=== PATIENT | female | born 1990 | race African-American/Black ===

== ENCOUNTER 2019-07-05 21:29 | Inpatient (IN) | payer BC ==
[2019-07-06 01:25] LABS: ABSOLUTE BASOPHILS # (AUTO) 0.1 10^3/uL (0.0-0.2); ABSOLUTE LYMPHOCYTES (AUTO) 1.6 10^3/uL (0.5-4.7); ABSOLUTE MONOCYTES (AUTO) 0.7 10^3/uL (0.1-1.4); ABSOLUTE NEUT (AUTO) 8.1 10^3/uL (1.7-8.2); BASOPHILS % (AUTO) 0.6 % (0-2); HEMATOCRIT 49.2 % (36.0-47.0); HEMOGLOBIN 15.8 g/dL (12.0-15.5); LYMPHOCYTES % (AUTO) 14.8 % (13-45); MEAN CORPUSCULAR HEMOGLOBIN 26.4 pg (27.0-33.4); MEAN CORPUSCULAR HGB CONC 32.1 g/dL (32.0-36.0); MEAN CORPUSCULAR VOLUME 82 fl (80-97); MONOCYTES % (AUTO) 7.1 % (3-13); PLATELET COUNT 303 10^3/uL (150-450); RED BLOOD COUNT 5.97 10^6/uL (3.72-5.28); RED CELL DISTRIBUTION WIDTH 13.2 % (11.5-14.0); SEGMENTED NEUTROPHILS % (AUTO) 77.5 % (42-78); TOTAL CELLS COUNTED % (AUTO) 100 %; WHITE BLOOD COUNT 10.5 10^3/uL (4.0-10.5)
[2019-07-06 01:45] LABS: ALBUMIN 5.7 g/dL (3.5-5.0); ALKALINE PHOSPHATASE 127 U/L (38-126); ASPARTATE AMINO TRANSFERASE 18 U/L (14-36); BILIRUBIN,DIRECT 0.4 mg/dL (0.0-0.4); BILIRUBIN,TOTAL 0.9 mg/dL (0.2-1.3); BLOOD UREA NITROGEN 22 mg/dL (7-20); CALCIUM 11.2 mg/dL (8.4-10.2); GLUCOSE 384 mg/dL (75-110); POTASSIUM 5.1 mmol/L (3.6-5.0)
[2019-07-06 01:57] LABS: CHLORIDE 93 mmol/L (98-107)
[2019-07-06 02:00] LABS: ANION GAP 33 (5-19); CARBON DIOXIDE 7 mmol/L (22-30)
--- NOTE | 2019-07-06 02:09 | ER Document Report ---
ED General - General Chief Complaint: High Blood Sugar Stated Complaint: SUGAR PROBLEMS Time Seen by Provider: 07/06/19 02:00 Notes: Patient is a 28-year-old female that comes to the emergency department for chief complaint of dizziness, nausea, weakness, frequent urination. She states that she was seen by urgent care earlier today, told that she has diabetes now, prescribed to oral medications including metformin, she states she took her i nitial doses but she felt so terrible that she came in for evaluation at the emergency department. She states she has lost 9 pounds this week. She does deny fever, vomiting, or any other complaints. She denies any diagnosed medical history of daily medications. Her significant other is at bedside. TRAVEL OUTSIDE OF THE [place] IN LAST 30 DAYS: No - Related Data Allergies/Adverse Reactions: No Known Allergies Allergy (Unverified 05/13/16 10:05) Home Medications: farxiga 10 mg qday. metformin ER 500 mg bid Past Medical History - General Information source: Patient, Relative - Social History Smoking Status: Never Smoker Frequency of alcohol use: None Drug Abuse: None Lives with: Family Family History: Reviewed & Not Pertinent Patient has suicidal ideation: No Patient has homicidal ideation: No Pulmonary Medical History: Reports: Hx Asthma Past Surgical History: Reports: Hx Tonsillectomy - Immunizations Immunizations up to date: Yes Hx Diphtheria, Pertussis, Tetanus Vaccination: Yes Review of Systems - Review of Systems Constitutional: See HPI EENT: No symptoms reported Cardiovascular: No symptoms reported Respiratory: No symptoms reported Gastrointestinal: See HPI Genitourinary: See HPI Female Genitourinary: No symptoms reported Musculoskeletal: No symptoms reported Skin: No symptoms reported Hematologic/Lymphatic: No symptoms reported Neurological/Psychological: No symptoms reported Physical Exam - Vital signs Vitals: Temp Pulse Resp BP Pulse Ox 97.7 F 119 H 22 H 124/69 99 07/05/19 21:40 07/05/19 21:40 07/05/19 21:40 07/05/19 21:40 07/05/19 21:40 - Notes Notes: GENERAL: Alert but ill-appearing, gaunt, pale HEAD: Normocephalic, atraumatic. EYES: Pupils equal, round, and reactive to light. Extraocular movements intact. ENT: Oral mucosa extremely dry, tongue midline. Oropharynx unremarkable. Airway patent. NECK: Full range of motion. Supple. Trachea midline. LUNGS: Clear to auscultation bilaterally, no wheezes, rales, or rhonchi. Tachypnea noted HEART: Tachycardia, normal rhythm, no murmur ABDOMEN: Soft, non-tender. Non-distended. EXTREMITIES: Moves all 4 extremities spontaneously. No edema, normal radial and dorsalis pedis pulses bilaterally. No cyanosis. BACK: no cervical, thoracic, lumbar midline tenderness. No saddle anesthesia, normal distal neurovascular exam. Moves all extremities in full range of motion. NEUROLOGICAL: Alert and oriented x3. Normal speech. Cranial nerves II through XII grossly intact. PSYCH: Cooperative and appropriate SKIN: Pale Course - Re-evaluation Re-evalutation: Patient is tachycardic, pale, tachypneic, ill-appearing. Her presentation is v rommel concerning for DKA in a patient with new onset diabetes. Patient states that at urgent care earlier today she was prescribed and has taken initial doses of Farxiga 10 mg and Metformin [address] 2 peripheral IVs, starting on lactated ringer boluses, patient will likely require insulin drip and admission. She will be closely reevaluated. Placed on the monitor. On reevaluation tachycardia has already resolved, patient is already improved in appearance, respirations have slowed, her skin color is improved. CBC shows concentrated hemoglobin likely at greater than 15, no leukocytosis. Chemistry shows potassium of 5.1, blood glucose 384, anion gap of 33, bicarb of 7. Acute renal insufficiency noted with elevated BUN and creatinine of 1.28. Sodium inappropriately low in the setting of hyperglycemia. EKG does not show peaked T waves or concerning QTC. test negative. Urinalysis nonspecific with ketones and dehydration. Venous blood gas shows pH of 7.11, bicarbonate of 8. Patient has been started on an insulin infusion. On reevaluation she is much improved. I discussed with her her work-up, treatments, and admission to the hospital. Patient and her state appreciation and agreement. Discussed with Dr. Saini. He recommends admission to the hospitalist. 07/06/[address] Moss, hospitalist, he states that patient is too ill and he recommends we admit her to the ICU based on her DKA with severe acidosis. I spoke with Dr. Grover, shoe cementer, she accepts patient to the ICU. - Vital Signs Vital signs: Temp Pulse Resp BP Pulse Ox 97.7 F 119 H 25 H 116/72 100 07/05/19 21:40 07/05/19 21:40 07/06/19 04:29 07/06/19 04:29 07/06/19 04:29 - Laboratory Result Diagrams: 07/06/19 01:14 07/06/19 01:14 Laboratory results interpreted by me: 07/05/19 07/06/19 07/06/19 23:15 01:14 01:14 RBC 5.97 H Hgb 15.8 H Hct 49.2 H MCH 26.4 L VBG pH VBG pCO2 VBG HCO3 Sodium 132.8 L Potassium 5.1 H Chloride 93 L Carbon Dioxide 7 L* Anion Gap 33 H BUN 22 H Creatinine 1.28 H Est GFR (MDRD) Non-Af 50 L Glucose 384 H POC Glucose 362 H Calcium 11.2 H Alkaline Phosphatase 127 H Total Protein 10.0 H Albumin 5.7 H Urine Protein Urine Glucose (UA) Urine Ketones Urine Blood 07/06/19 07/06/19 07/06/19 01:45 02:16 03:35 RBC Hgb Hct MCH VBG pH 7.11 L* VBG pCO2 28.2 L VBG HCO3 8.8 L Sodium Potassium Chloride Carbon Dioxide Anion Gap BUN Creatinine Est GFR (MDRD) Non-Af Glucose POC Glucose 263 H Calcium Alkaline Phosphatase Total Protein Albumin Urine Protein 100 H Urine Glucose (UA) >=500 H Urine Ketones 80 H Urine Blood SMALL H Critical Care Note - Critical Care Note Total time excluding time spent on procedures (mins): 35 - Diabetic ketoacidosis, acute renal insufficiency Comments: Please allow 35 minutes of critical care time for evaluation and management of patient with new onset diabetic ketoacidosis with dehydration, severe acidosis, acute renal failure. Interventions including IV fluid resuscitation and insulin drip. Multiple re-evaluations performed. Consultation with hospitalist and shoe cementer, admission to the ICU. Discharge - Discharge Clinical Impression: Acute renal insufficiency, Tachycardia, Diabetes mellitus, new onset DKA (diabetic ketoacidosis) Qualifiers: Diabetes mellitus type: type 1 Diabetes mellitus complication detail: without coma Qualified Code(s): E10.10 - Type 1 diabetes mellitus with ketoacidosis without coma Condition: Fair Disposition: ADMITTED INPATIENT Admitting Provider: Reilly (Marketing Program Coordinator) Unit Admitted: ICU
[2019-07-06 02:10] LABS: APPEARANCE,URINE CLEAR; BILIRUBIN,URINE NEGATIVE (NEGATIVE); COLOR,URINE STRAW; GLUCOSE, URINE >=500 mg/dL (NEGATIVE); KETONES,URINE 80 mg/dL (NEGATIVE); LEUKOCYTE ESTERASE,URINE NEGATIVE (NEGATIVE); NITRITE,URINE NEGATIVE (NEGATIVE); PROTEIN,URINE 100 mg/dL (NEGATIVE); UROBILINOGEN,URINE NEGATIVE mg/dL (<2.0)
[2019-07-06] MEDS ORDERED: NORMAL SALINE 100 ML with INSULIN REGULAR, HUMAN 100 UNIT IV PRN ×2 (02:28)
[2019-07-06] MEDS: RINGERS SOLUTION,LACTATED 1,000 ML IV PRN ×2 (02:30→03:32)
[2019-07-06 02:34] LABS: VENOUS BLOOD BASE EXCESS -19.2 mmol/L; VENOUS BLOOD HCO3 8.8 mmol/L (20-32); VENOUS BLOOD PCO2 28.2 mmHg (35-63)
[2019-07-06 02:37] LABS: VENOUS BLOOD PH 7.11 (7.30-7.42)
[2019-07-06] MEDS ORDERED: INSULIN REG, HUMAN 100 UNIT/ML 3 ML VIAL (PYX) ONE (02:51)
[2019-07-06] MEDS ORDERED: RINGERS SOLUTION,LACTATED 1,000 ML IV PRN (03:25)
[2019-07-06] MEDS ORDERED: DEXTROSE 5%-1/2 NORMAL SALINE 1,000 ML IV ONE (03:48)
[2019-07-06] MEDS ORDERED: ACETAMINOPHEN 325 MG TABLET ONE (05:55)
[2019-07-06] MEDS ORDERED: ACETAMINOPHEN 325 MG TABLET PO ONE (06:10)
--- NOTE | 2019-07-06 06:23 | CRITICAL CARE ADMISSION REPORT ---
HPI Date:: 07/06/19 Time:: 04:47 Reason for ICU Reason:: DKA, HAGMA HPI: Ms. Lyles is a 28yr old F without significant PMH who came to the ED today after several days of feeling dizzy, nauseated, weak, 9# weight loss in one week and frequent urination. She was seen at the urgent care yesterday and told she had diabetes and prescribed Metformin. She reportedly felt worse after taking the first dose of the medication and decided to come to the ED. Labs are significant for glucose of 384, pH of 7.11, anion gap of 33. She will be admitted to the ICU for new onset diabetes with HAGMA. - Diagnosis/Plan (1) High anion gap metabolic acidosis Is this a current diagnosis for this admission?: Yes Plan: Secondary to new onset DM - continue insulin gtt and D5 IV fluids with Q4 BMP to follow anion gap (2) DKA (diabetic ketoacidosis) Qualifiers: Diabetes mellitus type: type 1 Diabetes mellitus complication detail: w [facility] coma Qualified Code(s): E10.10 - Type 1 diabetes mellitus with ket oacidosis without coma Is this a current diagnosis for this admission?: Yes Plan: New onset DKA - continue insulin gtt, IV fluids with dextrose source, monitoring labs Q4hr until anion gap is closed, Q1hr POC with titration of insulin gtt, NPO except ice chips, requested services of special officer and nutrition (3) Diabetes mellitus, new onset Is this a current diagnosis for this admission?: Yes Plan: plan as stated above in DKA ddx (4) Nausea Is this a current diagnosis for this admission?: Yes Plan: Zofran q8 PRN nausea symptoms, monitor QTc (5) Acute renal insufficiency Is this a current diagnosis for this admission?: Yes Plan: Monitor I&O, trend renal indices, replace lytes PRN, continue IV fluids - . Plan Summary: Ms. Lyles is a very pleasant 28yr old F with newly diagnosed diabetes who arrived to the ED with DKA and HAGMA. She has no prior medical hx and is not on any medications prior to being prescribed Metformin from an urgent care she was seen at yesterday. After starting the medication she felt worse and decided to go to the ED. She will be admitted to the ICU for frequent blood glucose monitoring and lab work while on an insulin gtt. Past Medical History Past Medical History: Per HPI Pulmonary Medical History: Reports: Asthma Past Surgical History Past Surgical History: Reports: Tonsillectomy Social/Family History - Social History Smoking Status: Never Smoker - Medication/Allergies Allergies/Adverse Reactions: No Known Allergies Allergy (Unverified 05/13/16 10:05) Review of Systems Constitutional: PRESENT: anorexia, headache(s), weight gain Nose, Mouth, and Throat: PRESENT: headache(s). ABSENT: sore throat Cardiovascular: ABSENT: chest pain, palpitations Respiratory: ABSENT: cough Gastrointestinal: PRESENT: nausea. ABSENT: abdominal pain, diarrhea, vomiting Genitourinary: PRESENT: other - polyuria Neurological: ABSENT: confusion, numbness, tingling Physical Exam Vital Signs: Temp Pulse Resp BP Pulse Ox 97.7 F 119 H 23 H 124/69 100 07/05/19 21:40 07/05/19 21:40 07/06/19 04:00 07/05/19 21:40 07/06/19 04:00 Intake & Output 07/04/19 07/05/19 07/06/19 06:59 06:59 06:59 Intake Total 2003 Balance 2003 Weight 69.445 kg Weight/Height Weight 69.445 kg Height 5 ft 3 in General appearance: PRESENT: no acute distress, well-developed, well-nourished Head exam: PRESENT: atraumatic, normocephalic Eye exam: PRESENT: conjunctiva pink, EOMI, PERRLA Ear exam: PRESENT: normal external ear exam Mouth exam: PRESENT: dry mucosa Neck exam: ABSENT: tracheal deviation Respiratory exam: PRESENT: clear to auscultation ramila. ABSENT: wheezes Cardiovascular exam: PRESENT: RRR, +S1, +S2 Pulses: PRESENT: normal dorsalis pedis pul GI/Abdominal exam: PRESENT: normal bowel sounds. ABSENT: tenderness Extremities exam: ABSENT: pedal edema Neurological exam: PRESENT: alert, awake, oriented to person, oriented to place, oriented to time, oriented to situation, CN II-XII grossly intact Psychiatric exam: PRESENT: appropriate affect Skin exam: PRESENT: dry, warm Laboratory/Radiographs Laboratory Results: 07/06/19 01:14 07/06/19 01:14 07/06/19 07/06/19 07/06/19 01:14 01:14 01:45 WBC 10.5 RBC 5.97 H Hgb 15.8 H Hct 49.2 H MCV 82 MCH 26.4 L MCHC 32.1 RDW 13.2 Plt Count 303 Seg Neutrophils % 77.5 VBG pH VBG pCO2 VBG HCO3 VBG Base Excess Sodium 132.8 L Potassium 5.1 H Chloride 93 L Carbon Dioxide 7 L* Anion Gap 33 H BUN 22 H Creatinine 1.28 H Est GFR ( Amer) > 60 Glucose 384 H Calcium 11.2 H Total Bilirubin 0.9 AST 18 Alkaline Phosphatase 127 H Total Protein 10.0 H Albumin 5.7 H Urine Color STRAW Urine Appearance CLEAR Urine pH 5.0 Ur Specific [place] 1.030 Urine Protein 100 H Urine Glucose (UA) >=500 H Urine Ketones 80 H Urine Blood SMALL H Urine Nitrite NEGATIVE Ur Leukocyte Esterase NEGATIVE Urine WBC (Auto) 2 Urine RBC (Auto) 1 07/06/19 02:16 WBC RBC Hgb Hct MCV MCH MCHC RDW Plt Count Seg Neutrophils % VBG pH 7.11 L* VBG pCO2 28.2 L VBG HCO3 8.8 L VBG Base Excess -19.2 Sodium Potassium Chloride Carbon Dioxide Anion Gap BUN Creatinine Est GFR ( Amer) Glucose Calcium Total Bilirubin AST Alkaline Phosphatase Total Protein Albumin Urine Color Urine Appearance Urine pH Ur Specific [place] Urine Protein Urine Glucose (UA) Urine Ketones Urine Blood Urine Nitrite Ur Leukocyte Esterase Urine WBC (Auto) Urine RBC (Auto) Critical Time Critical Time (minutes): 30 - not including procedures -: The care of a critically ill patient is dynamic. This note represents a static moment in the admission process. Orders and treatments may be given simultaneously and urgently, and time is not telephone services sales representative of the treatment process. This patient requires Critical Care secondary to life threatening organ or limb dysfunction. Without Critical Care services, the patient is at risk for increased mortality and morbidity.
[2019-07-06] MEDS ORDERED: INFLUENZA QUAD (6MOS+) 2019-20 VAC 0.5 ML SYR IM ONE (07:00)
[2019-07-06 08:14] LABS: ABSOLUTE LYMPHOCYTES (AUTO) 2.5 10^3/uL (0.5-4.7); ABSOLUTE MONOCYTES (AUTO) 0.8 10^3/uL (0.1-1.4); ABSOLUTE NEUT (AUTO) 6.5 10^3/uL (1.7-8.2); BASOPHILS % (AUTO) 0.5 % (0-2); EOSINOPHILS % (AUTO) 0.2 % (0-6); HEMATOCRIT 41.4 % (36.0-47.0); HEMOGLOBIN 13.8 g/dL (12.0-15.5); LYMPHOCYTES % (AUTO) 25.7 % (13-45); MEAN CORPUSCULAR HEMOGLOBIN 26.5 pg (27.0-33.4); MEAN CORPUSCULAR HGB CONC 33.3 g/dL (32.0-36.0); MEAN CORPUSCULAR VOLUME 80 fl (80-97); MONOCYTES % (AUTO) 8.1 % (3-13); PLATELET COUNT 260 10^3/uL (150-450); RED CELL DISTRIBUTION WIDTH 12.6 % (11.5-14.0); SEGMENTED NEUTROPHILS % (AUTO) 65.5 % (42-78); TOTAL CELLS COUNTED % (AUTO) 100 %; WHITE BLOOD COUNT 9.9 10^3/uL (4.0-10.5)
[2019-07-06 08:33] LABS: ALBUMIN 4.2 g/dL (3.5-5.0); ALKALINE PHOSPHATASE 80 U/L (38-126); ASPARTATE AMINO TRANSFERASE 15 U/L (14-36); BILIRUBIN,DIRECT 0.3 mg/dL (0.0-0.4); BILIRUBIN,TOTAL 0.6 mg/dL (0.2-1.3); BLOOD UREA NITROGEN 16 mg/dL (7-20); CALCIUM 9.3 mg/dL (8.4-10.2); CHLORIDE 103 mmol/L (98-107); GLUCOSE 151 mg/dL (75-110); PHOSPHORUS 3.2 mg/dL (2.5-4.5); TOTAL PROTEIN 7.9 g/dL (6.3-8.2)
[2019-07-06 08:49] LABS: ANION GAP 20 (5-19)
[2019-07-06 09:06] LABS: POTASSIUM 4.1 mmol/L (3.6-5.0)
[2019-07-06 09:07] LABS: CARBON DIOXIDE 10 mmol/L (22-30)
[2019-07-06] MEDS ORDERED: ENOXAPARIN SODIUM INJ 30 MG/0.3 ML DISP.SYRIN SUBCUT SCH (10:00)
[2019-07-06 11:13] LABS: ANION GAP 14 (5-19); BLOOD UREA NITROGEN 14 mg/dL (7-20); CALCIUM 9.2 mg/dL (8.4-10.2); CARBON DIOXIDE 14 mmol/L (22-30); CHLORIDE 105 mmol/L (98-107); GLUCOSE 102 mg/dL (75-110); POTASSIUM 3.9 mmol/L (3.6-5.0)
[2019-07-06] MEDS ORDERED: DEXTROSE 5%-1/2 NORMAL SALINE 1,000 ML IV PRN (12:14)
--- NOTE | 2019-07-06 12:19 | PDOC CRITICAL CARE PROG REPORT ---
General Date:: 07/06/19 - Critical Care Attending Note Resuscitation Status: Full Code Events in the past 12 to 24 Hours:: Pt remains on insulin drip. Has no complaints. States her PCP diagnosed her with Type II DM yesterday. Reason for ICU Addmission:: DKA, HAGMA Physical Exam Vital Signs: Temp Pulse Resp BP Pulse Ox 98.6 F 102 H 18 117/75 100 07/06/19 08:00 07/06/19 10:00 07/06/19 10:00 07/06/19 10:00 07/06/19 10:00 Intake & Output 07/05/19 07/06/19 07/07/19 06:59 06:59 06:59 Intake Total 2013 Balance 2013 Weight 74 kg Weight/Height Weight 74 kg Height 5 ft 3 in General appearance: PRESENT: no acute distress, well-developed, well-nourished Head exam: PRESENT: atraumatic, normocephalic Respiratory exam: PRESENT: clear to auscultation ramila, unlabored Cardiovascular exam: PRESENT: RRR GI/Abdominal exam: PRESENT: soft, other - non tender, non distended Extremities exam: PRESENT: other - no edema Musculoskeletal exam: PRESENT: normal inspection Neurological exam: PRESENT: alert, awake Laboratory/Radiographs Laboratory Results: 07/06/19 08:00 07/06/19 10:42 07/06/19 07/06/19 07/06/19 01:14 01:14 01:45 WBC 10.5 RBC 5.97 H Hgb 15.8 H Hct 49.2 H MCV 82 MCH 26.4 L MCHC 32.1 RDW 13.2 Plt Count 303 Seg Neutrophils % 77.5 VBG pH VBG pCO2 VBG HCO3 VBG Base Excess Sodium 132.8 L Potassium 5.1 H Chloride 93 L Carbon Dioxide 7 L* Anion Gap 33 H BUN 22 H Creatinine 1.28 H Est GFR ( Amer) > 60 Glucose 384 H Calcium 11.2 H Phosphorus Magnesium Total Bilirubin 0.9 AST 18 Alkaline Phosphatase 127 H Total Protein 10.0 H Albumin 5.7 H Urine Color STRAW Urine Appearance CLEAR Urine pH 5.0 Ur Specific [place] 1.030 Urine Protein 100 H Urine Glucose (UA) >=500 H Urine Ketones 80 H Urine Blood SMALL H Urine Nitrite NEGATIVE Ur Leukocyte Esterase NEGATIVE Urine WBC (Auto) 2 Urine RBC (Auto) 1 07/06/19 07/06/19 07/06/19 02:16 08:00 08:00 WBC 9.9 RBC 5.20 Hgb 13.8 Hct 41.4 MCV 80 MCH 26.5 L MCHC 33.3 RDW 12.6 Plt Count 260 Seg Neutrophils % 65.5 VBG pH 7.11 L* VBG pCO2 28.2 L VBG HCO3 8.8 L VBG Base Excess -19.2 Sodium 133.2 L Potassium 4.1 D Chloride 103 Carbon Dioxide 10 L* Anion Gap 20 H BUN 16 Creatinine 0.82 Est GFR ( Amer) > 60 Glucose 151 H Calcium 9.3 Phosphorus 3.2 Magnesium 1.8 Total Bilirubin 0.6 AST 15 Alkaline Phosphatase 80 Total Protein 7.9 Albumin 4.2 Urine Color Urine Appearance Urine pH Ur Specific [place] Urine Protein Urine Glucose (UA) Urine Ketones Urine Blood Urine Nitrite Ur Leukocyte Esterase Urine WBC (Auto) Urine RBC (Auto) 07/06/19 10:42 WBC RBC Hgb Hct MCV MCH MCHC RDW Plt Count Seg Neutrophils % VBG pH VBG pCO2 VBG HCO3 VBG Base Excess Sodium 133.2 L Potassium 3.9 Chloride 105 Carbon Dioxide 14 L Anion Gap 14 BUN 14 Creatinine 0.76 Est GFR ( Amer) > 60 Glucose 102 Calcium 9.2 Phosphorus Magnesium Total Bilirubin AST Alkaline Phosphatase Total Protein Albumin Urine Color Urine Appearance Urine pH Ur Specific [place] Urine Protein Urine Glucose (UA) Urine Ketones Urine Blood Urine Nitrite Ur Leukocyte Esterase Urine WBC (Auto) Urine RBC (Auto) Assessment and Plan - Diagnosis (1) Diabetes mellitus, new onset Is this a current diagnosis for this admission?: Yes (2) DKA (diabetic ketoacidosis) Qualifiers: Diabetes mellitus type: type 2 Diabetes mellitus complication detail: without coma Qualified Code(s): E11.10 - Type 2 diabetes mellitus with ketoacidosis without coma Is this a current diagnosis for this admission?: Yes Plan Summary: Assessment: 28 yo woman with new onset Type II DM, DKA. Plan: 1. Respiratory: stable on room air 2. CV: heart rate and BP acceptable 3. Endocrine: new onset Type II DM. DKA. Continue insulin drip. Check frequent BMPs. Diabetic teaching. 4. Renal: CHET, resolved. 5. Nutrition: NPO 6. Prophylaxis: sq heparin Critical Time Critical Time (minutes): 0 Level of Care: ICU -: 1. The care of a critical patient is a dynamic process. This note is a entry level sales representative synopsis but static in nature. The timeframe for treatments given in order is not necessarily the actual time these treatments may have been done. 2. This patient requires critical care secondary to ongoing requirements for therapy not offered or safe outside the critical care environment. Transfer to a lower level of care will result in altered life or limb morbidity and mortality. 3. Multidisciplinary rounds completed. 4. ABCDE bundle addressed.
[2019-07-06 12:57] LABS: ANION GAP 14 (5-19); BLOOD UREA NITROGEN 14 mg/dL (7-20); CARBON DIOXIDE 16 mmol/L (22-30); CHLORIDE 103 mmol/L (98-107); GLUCOSE 88 mg/dL (75-110); POTASSIUM 3.9 mmol/L (3.6-5.0)
[2019-07-06] MEDS ORDERED: GLUCAGON,HUMAN RECOMB 1 MG INJ IM PRN ×2 (14:13→15:57)
[2019-07-06] MEDS ORDERED: DEXTROSE 40% GEL 15 GM TUBE PO PRN ×4 (14:13→15:57)
[2019-07-06] MEDS ORDERED: DEXTROSE 50%-WATER 25 GM/50 ML DISP.SYRIN IV PRN ×4 (14:13→15:57)
[2019-07-06] MEDS ORDERED: INSULIN REG, HUMAN 100 UNIT/ML 3 ML VIAL (PYX) SUBCUT SCH (16:00)
[2019-07-06] MEDS: INSULIN REG, HUMAN 100 UNIT/ML 3 ML VIAL (PYX) SUBCUT SCH ×2 (16:38→22:16)
--- NOTE | 2019-07-06 19:28 | EKG REPORT ---
SEVERITY:- ABNORMAL ECG - SINUS RHYTHM RAA, CONSIDER BIATRIAL ABNORMALITIES : Confirmed by: Cindy Hinkle MD 06-Jul-2019 19:27:37
[2019-07-06 20:38] LABS: ANION GAP 15 (5-19); BLOOD UREA NITROGEN 11 mg/dL (7-20); CALCIUM 9.3 mg/dL (8.4-10.2); CARBON DIOXIDE 15 mmol/L (22-30); CHLORIDE 102 mmol/L (98-107); GLUCOSE 201 mg/dL (75-110); POTASSIUM 4.2 mmol/L (3.6-5.0)
[2019-07-07 05:17] LABS: ABSOLUTE EOSINOPHILS # (AUTO) 0.2 10^3/uL (0.0-0.6); ABSOLUTE MONOCYTES (AUTO) 0.6 10^3/uL (0.1-1.4); BASOPHILS % (AUTO) 0.5 % (0-2); EOSINOPHILS % (AUTO) 3.6 % (0-6); HEMATOCRIT 39.9 % (36.0-47.0); HEMOGLOBIN 13.2 g/dL (12.0-15.5); LYMPHOCYTES % (AUTO) 41.4 % (13-45); MEAN CORPUSCULAR HEMOGLOBIN 26.4 pg (27.0-33.4); MEAN CORPUSCULAR HGB CONC 33.1 g/dL (32.0-36.0); MEAN CORPUSCULAR VOLUME 80 fl (80-97); MONOCYTES % (AUTO) 13.2 % (3-13); PLATELET COUNT 220 10^3/uL (150-450); RED CELL DISTRIBUTION WIDTH 12.7 % (11.5-14.0); SEGMENTED NEUTROPHILS % (AUTO) 41.3 % (42-78); TOTAL CELLS COUNTED % (AUTO) 100 %; WHITE BLOOD COUNT 4.9 10^3/uL (4.0-10.5)
[2019-07-07 05:34] LABS: ANION GAP 16 (5-19); BLOOD UREA NITROGEN 11 mg/dL (7-20); CALCIUM 9.4 mg/dL (8.4-10.2); CARBON DIOXIDE 14 mmol/L (22-30); CHLORIDE 104 mmol/L (98-107); GLUCOSE 209 mg/dL (75-110); PHOSPHORUS 2.8 mg/dL (2.5-4.5); POTASSIUM 4.3 mmol/L (3.6-5.0)
[2019-07-07] MEDS: INSULIN REG, HUMAN 100 UNIT/ML 3 ML VIAL (PYX) SUBCUT SCH ×2 (07:42→12:23)
[2019-07-07] MEDS ORDERED: HEPARIN SOD (PORCINE) 5,000 UNIT/ML 1 ML VIAL SUBCUT SCH (10:00)
[2019-07-07 11:54] VITALS: BP 108/61
--- NOTE | 2019-07-07 11:56 | PDOC DISCHARGE SUMMARY ---
Impression - Admit/DC Date/PCP Admission Date/Primary Care Provider: 07/06/19 04:28 Discharge Date: 07/07/19 - Discharge Diagnosis (1) DKA (diabetic ketoacidosis) Is this a current diagnosis for this admission?: Yes (2) Diabetes mellitus, new onset Is this a current diagnosis for this admission?: Yes (3) Acute renal insufficiency Is this a current diagnosis for this admission?: Yes (4) Nausea Is this a current diagnosis for this admission?: Yes - Additional Information Resuscitation Status: Full Code Discharge Diet: Regular Discharge Activity: Activity As Tolerated Referrals: SANTO CONTI MD [[facility] BASED STAFF] - Follow up as needed (we will call tuesday and set up a new patient appointment with Dr. Conti's office, They will then refer you to an make up editor) Prescriptions: Insulin Lispro [Humalog Kwikpen U-100] See Protocol SQ ACHS #3 insuln.pen Pen Needle, Diabetic [Insulin Pen Needle] 1 each MC 5XD 15 Days #75 dis.[email or web address] Insulin Glargine,Hum.rec.anlog [Lantus Insulin 100 Unit/mL Insulin Pen] 35 unit SUBCUT QHS 15 Days #2 pen Metformin HCl [Metformin ER Gastric] 500 mg PO BID 14 Days #28 [id number] Home Medications: Insulin Glargine,Hum.rec.anlog [Lantus Insulin 100 Unit/mL Insulin Pen] 35 unit SUBCUT QHS 15 Days #2 pen 07/07/19 Insulin Lispro [Humalog Kwikpen U-100] See Protocol SQ ACHS #3 insuln.pen 07/07/19 Metformin HCl [Metformin ER Gastric] 500 mg PO BID 14 Days #28 [id number] 07/07/19 Pen Needle, Diabetic [Insulin Pen Needle] 1 each MC 5XD 15 Days #75 [email or web address] 07/07/19 History of Present Illiness History of Present Illness: DEON PULIDO is a 28 year old female who was diagnosed with diabetes mellitus type 2 on the day prior to admission. She presented with high anion gap diabetic ketoacidosis. She was admitted to the intensive care unit. Insulin infusion was instituted. Hospital Course Hospital Course: Patient responded quite well to aggressive IV fluids and insulin infusion. She is stable for discharge today. Physical Exam Vital Signs: Temp Pulse Resp BP Pulse Ox 98.4 F 94 16 117/75 99 12/28/19 11:32 07/07/19 11:32 07/07/19 11:32 07/07/19 11:32 07/07/19 11:32 Intake & Output 07/06/19 07/07/19 07/08/19 06:59 06:59 06:59 Intake Total 2013 624 Output Total 150 Balance 2013 474 Weight 74 kg 74.7 kg General appearance: PRESENT: no acute distress, cooperative, well-developed, well-nourished Head exam: PRESENT: atraumatic, normocephalic Respiratory exam: PRESENT: clear to auscultation ramila, symmetrical, unlabored. ABSENT: rales, rhonchi, tachypnea, wheezes Cardiovascular exam: PRESENT: RRR, +S1, +S2 GI/Abdominal exam: PRESENT: normal bowel sounds, soft. ABSENT: distended, tenderness Rectal exam: PRESENT: deferred Gentrourinary exam: ABSENT: indwelling catheter Extremities exam: PRESENT: full ROM. ABSENT: pedal edema Musculoskeletal exam: PRESENT: ambulatory, normal inspection. ABSENT: deformity Neurological exam: PRESENT: alert, awake, oriented to person, oriented to place, oriented to time, oriented to situation, CN II-XII grossly intact. ABSENT: altered, motor sensory deficit Psychiatric exam: PRESENT: appropriate affect, normal mood. ABSENT: agitated, anxious Results Laboratory Results: WBC 4.9 10^3/uL (4.0-10.5) 07/07/19 04:54 RBC 5.00 10^6/uL (3.72-5.28) 07/07/19 04:54 Hgb 13.2 g/dL (12.0-15.5) 07/07/19 04:54 Hct 39.9 % (36.0-47.0) 07/07/19 04:54 MCV 80 fl (80-97) 07/07/19 04:54 MCH 26.4 pg (27.0-33.4) L 07/07/19 04:54 MCHC 33.1 g/dL (32.0-36.0) 07/07/19 04:54 RDW 12.7 % (11.5-14.0) 07/07/19 04:54 Plt Count 220 10^3/uL (150-450) 07/07/19 04:54 Lymph % (Auto) 41.4 % (13-45) 07/07/19 04:54 [place] % (Auto) 13.2 % (3-13) H 07/07/19 04:54 Eos % (Auto) 3.6 % (0-6) 07/07/19 04:54 Baso % (Auto) 0.5 % (0-2) 07/07/19 04:54 Absolute Neuts (auto) 2.0 10^3/uL (1.7-8.2) 07/07/19 04:54 Absolute Lymphs (auto) 2.0 10^3/uL (0.5-4.7) 07/07/19 04:54 Absolute Monos (auto) 0.6 10^3/uL (0.1-1.4) 07/07/19 04:54 Absolute Eos (auto) 0.2 10^3/uL (0.0-0.6) 07/07/19 04:54 Absolute Basos (auto) 0.0 10^3/uL (0.0-0.2) 07/07/19 04:54 Seg Neutrophils % 41.3 % (42-78) L 07/07/19 04:54 VBG pH 7.11 (7.30-7.42) L* 07/06/19 02:16 VBG pCO2 28.2 mmHg (35-63) L 07/06/19 02:16 VBG HCO3 8.8 mmol/L (20-32) L 07/06/19 02:16 VBG Base Excess -19.2 mmol/L 07/06/19 02:16 Sodium 134.4 mmol/L (137-145) L 07/07/19 04:54 Potassium 4.3 mmol/L (3.6-5.0) 07/07/19 04:54 Chloride 104 mmol/L (98-107) 07/07/19 04:54 Carbon Dioxide 14 mmol/L (22-30) L 07/07/19 04:54 Anion Gap 16 (5-19) 07/07/19 04:54 BUN 11 mg/dL (7-20) 07/07/19 04:54 Creatinine 0.79 mg/dL (0.52-1.25) 07/07/19 04:54 Est GFR ( Amer) > 60 (>60) 07/07/19 04:54 Est GFR (MDRD) Non-Af > 60 (>60) 07/07/19 04:54 Glucose 209 mg/dL (75-110) H 07/07/19 04:54 POC Glucose 191 mg/dL (70-110) H 07/07/19 10:54 Calcium 9.4 mg/dL (8.4-10.2) 07/07/19 04:54 Phosphorus 2.8 mg/dL (2.5-4.5) 07/07/19 04:54 Magnesium 2.0 mg/dL (1.6-2.3) 07/07/19 04:54 Total Bilirubin 0.6 mg/dL (0.2-1.3) 07/06/19 08:00 Direct Bilirubin 0.3 mg/dL (0.0-0.4) 07/06/19 08:00 Neonat Total Bilirubin Not Reportable 07/06/19 08:00 Neonat Direct Bilirubin Not Reportable 07/06/19 08:00 Neonat Indirect Bili Not Reportable 07/06/19 08:00 AST 15 U/L (14-36) 07/06/19 08:00 ALT 11 U/L (<35) 07/06/19 08:00 Alkaline Phosphatase 80 U/L (38-126) 07/06/19 08:00 Total Protein 7.9 g/dL (6.3-8.2) 07/06/19 08:00 Albumin 4.2 g/dL (3.5-5.0) 07/06/19 08:00 Urine Color STRAW 07/06/19 01:45 Urine Appearance CLEAR 07/06/19 01:45 Urine pH 5.0 (5.0-9.0) 07/06/19 01:45 Ur Specific [place] 1.030 07/06/19 01:45 Urine Protein 100 mg/dL (NEGATIVE) H 07/06/19 01:45 Urine Glucose (UA) >=500 mg/dL (NEGATIVE) H 07/06/19 01:45 Urine Ketones 80 mg/dL (NEGATIVE) H 07/06/19 01:45 Urine Blood SMALL (NEGATIVE) H 07/06/19 01:45 Urine Nitrite NEGATIVE (NEGATIVE) 07/06/19 01:45 Urine Bilirubin NEGATIVE (NEGATIVE) 07/06/19 01:45 Urine Urobilinogen NEGATIVE mg/dL (<2.0) 07/06/19 01:45 Ur Leukocyte Esterase NEGATIVE (NEGATIVE) 07/06/19 01:45 Urine WBC (Auto) 2 /HPF 07/06/19 01:45 Urine RBC (Auto) 1 /HPF 07/06/19 01:45 U Hyaline Cast (Auto) 1 /LPF 07/06/19 01:45 Squamous Epi Cells Auto <1 /HPF 07/06/19 01:45 Urine Mucus (Auto) RARE /LPF 07/06/19 01:45 Urine Ascorbic Acid NEGATIVE (NEGATIVE) 07/06/19 01:45 Urine HCG, Qual NEGATIVE (NEGATIVE) 07/06/19 01:45 Plan Health Concerns: Management of new onset diabetes Plan of Treatment: I will discharge the patient on Lantus with Humalog sliding scale. I will have her resume her metformin. I will defer to her primary care provider for additional changes to her home regimen. Goals: Adequate control of her new diagnosis Time Spent: Greater than 30 Minutes Stroke Is this a Stroke Patient?: No Acute Heart Failure - Is this a Heart Failure Patient?: No
[2019-07-07] MEDS ORDERED: INFLUENZA QUAD (6MOS+) 2019-20 VAC 0.5 ML SYR IM ONE (12:55)
== END 2019-07-07 13:26 | disposition home or self-care (01) | DRG 639 ==
LOC: ER 21:29 → EH 07-06 04:28 → ICU 07-06 05:11 → 4S 07-06 16:50
PROVIDERS: ADMIT Hospitalist; ATTEND Hospitalist
DX: E11.10 Type 2 diabetes mellitus with ketoacidosis without coma (principal); E86.0 Dehydration; N28.9 Disorder of kidney and ureter, unspecified
CPT/HCPCS: 36415; 80048; 80053; 81001; 81025; 82803; 82962; 83735; 84100; 85025; 87070; 90686; 93005; 93010; 96360; 96361; 99291; J1650; J1815; J7120

== ENCOUNTER 2019-07-13 10:31 | Emergency (ER) | payer BC ==
--- NOTE | 2019-07-13 12:23 | ER Document Report ---
ED Medical Screen (RME) - General Chief Complaint: Leg Pain Stated Complaint: LEG SWELLING Time Seen by Provider: 07/13/19 12:17 Mode of Arrival: Ambulatory Information source: Patient Notes: Patient presents with bilateral leg swelling that started today. Patient denies any shortness of breath cough cold symptoms or urinary symptoms. Patient denies any other complaints. Patient was recently diagnosed with diabetes and has recently got started on insulin. Patient reports blood sugar at home was in the 90s. I have greeted and performed a rapid initial assessment of this patient. A c omprehensive ED assessment and evaluation of the patient, analysis of test results and completion of the medical decision making process will be conducted by additional ED providers. TRAVEL OUTSIDE OF THE [place] IN LAST 30 DAYS: No - Related Data Allergies/Adverse Reactions: No Known Allergies Allergy (Verified 07/13/19 11:34) Past Medical History - Social History Chew tobacco use (# tins/day): No Frequency of alcohol use: None Drug Abuse: None Pulmonary Medical History: Reports: Hx Asthma Endocrine Medical History: Reports: Hx Diabetes Mellitus Type 1 Past Surgical History: Reports: Hx Tonsillectomy - Immunizations Immunizations up to date: Yes Hx Diphtheria, Pertussis, Tetanus Vaccination: Yes Physical Exam - Vital signs Vitals: Temp Pulse Resp BP Pulse Ox 98.3 F 68 18 105/64 100 07/13/19 11:19 07/13/19 11:19 07/13/19 11:19 07/13/19 11:19 07/13/19 11:19 - General General appearance: Appears well, Alert Notes: Bilateral lower extremity 2+ edema, normal skin color and temperature Course - Vital Signs Vital signs: Temp Pulse Resp BP Pulse Ox 98.3 F 68 18 105/64 100 07/13/19 11:19 07/13/19 11:19 07/13/19 11:19 07/13/19 11:19 07/13/19 11:19
[2019-07-13 12:33] LABS: ABSOLUTE EOSINOPHILS # (AUTO) 0.1 10^3/uL (0.0-0.6); ABSOLUTE LYMPHOCYTES (AUTO) 1.9 10^3/uL (0.5-4.7); ABSOLUTE MONOCYTES (AUTO) 0.4 10^3/uL (0.1-1.4); ABSOLUTE NEUT (AUTO) 2.2 10^3/uL (1.7-8.2); BASOPHILS % (AUTO) 0.7 % (0-2); EOSINOPHILS % (AUTO) 1.6 % (0-6); HEMATOCRIT 33.7 % (36.0-47.0); HEMOGLOBIN 11.1 g/dL (12.0-15.5); LYMPHOCYTES % (AUTO) 40.2 % (13-45); MEAN CORPUSCULAR HEMOGLOBIN 26.6 pg (27.0-33.4); MEAN CORPUSCULAR HGB CONC 32.9 g/dL (32.0-36.0); MEAN CORPUSCULAR VOLUME 81 fl (80-97); MONOCYTES % (AUTO) 9.6 % (3-13); PLATELET COUNT 216 10^3/uL (150-450); RED BLOOD COUNT 4.17 10^6/uL (3.72-5.28); RED CELL DISTRIBUTION WIDTH 13.7 % (11.5-14.0); SEGMENTED NEUTROPHILS % (AUTO) 47.9 % (42-78); TOTAL CELLS COUNTED % (AUTO) 100 %; WHITE BLOOD COUNT 4.6 10^3/uL (4.0-10.5)
[2019-07-13 12:42] LABS: APPEARANCE,URINE SLIGHTLY-CLOUDY; BILIRUBIN,URINE NEGATIVE (NEGATIVE); COLOR,URINE YELLOW; GLUCOSE, URINE NEGATIVE (NEGATIVE); KETONES,URINE TRACE mg/dL (NEGATIVE); LEUKOCYTE ESTERASE,URINE SMALL (NEGATIVE); NITRITE,URINE NEGATIVE (NEGATIVE); PROTEIN,URINE NEGATIVE (NEGATIVE); URINE SPECIFIC GRAVITY 1.014; UROBILINOGEN,URINE NEGATIVE mg/dL (<2.0)
[2019-07-13 12:55] LABS: ALBUMIN 3.3 g/dL (3.5-5.0); ALKALINE PHOSPHATASE 48 U/L (38-126); ANION GAP 7 (5-19); ASPARTATE AMINO TRANSFERASE 37 U/L (14-36); BILIRUBIN,DIRECT 0.3 mg/dL (0.0-0.4); BILIRUBIN,TOTAL 0.3 mg/dL (0.2-1.3); BLOOD UREA NITROGEN 10 mg/dL (7-20); CALCIUM 9.3 mg/dL (8.4-10.2); CARBON DIOXIDE 27 mmol/L (22-30); CHLORIDE 102 mmol/L (98-107); CREATINE KINASE 64 U/L (30-135); GLUCOSE 143 mg/dL (75-110); POTASSIUM 3.9 mmol/L (3.6-5.0); TOTAL PROTEIN 6.3 g/dL (6.3-8.2)
[2019-07-13] MEDS ORDERED: FUROSEMIDE 20 MG TABLET PO ONE (14:16)
--- NOTE | 2019-07-13 14:28 | ER Document Report ---
HPI - HPI Patient complains to provider of: Leg swelling Time Seen by Provider: 07/13/19 12:17 Onset: This morning Pain Level: Denies Context: Patient presents complaining of bilateral lower extremity swelling that she noticed today. Patient denies any cough, shortness of breath or chest pain. Patient denies any urinary symptoms. Patient reports a history of diabetes. Associated Symptoms: denies: Nonproductive cough, Productive cough, Fever, Headache, Nausea, Shortness of breath Exacerbated by: Denies Relieved by: Denies Similar symptoms previously: No Recently seen / treated by doctor: No - ROS ROS below otherwise negative: Yes Systems Reviewed and Negative: Yes All other systems reviewed and negative - CONSTITUTIONAL Constitutional: DENIES: Fever - NEURO Neurology: DENIES: Headache, Weakness - CARDIOVASCULAR Cardiovascular: DENIES: Chest pain - RESPIRATORY Respiratory: DENIES: Trouble Breathing, Coughing - REPRODUCTIVE Reproductive: DENIES: : - MUSCULOSKELETAL Musculoskeletal: REPORTS: Swelling. DENIES: Extremity pain - DERM Skin Color: Normal Skin Problems: None Past Medical History - General Information source: Patient - Social History Smoking Status: Never Smoker Chew tobacco use (# tins/day): No Frequency of alcohol use: None Drug Abuse: None Family History: Reviewed & Not Pertinent Patient has suicidal ideation: No Patient has homicidal ideation: No Pulmonary Medical History: Reports: Hx Asthma Endocrine Medical History: Reports: Hx Diabetes Mellitus Type 1 Past Surgical History: Reports: Hx Tonsillectomy - Immunizations Immunizations up to date: Yes Hx Diphtheria, Pertussis, Tetanus Vaccination: Yes Vertical Provider Document - CONSTITUTIONAL Agree With Documented VS: Yes Exam Limitations: No Limitations General Appearance: WD/WN, No Apparent Distress - INFECTION CONTROL TRAVEL OUTSIDE OF THE [place] IN LAST 30 DAYS: No - HEENT HEENT: Atraumatic, Normocephalic - NECK Neck: Normal Inspection, Supple. negative: Lymphadenopathy-Left, Lymphadenopathy-Right - RESPIRATORY Respiratory: Breath Sounds Normal, No Respiratory Distress - CARDIOVASCULAR Cardiovascular: Regular Rate, Regular Rhythm, No Murmur - BACK Back: Normal Inspection - MUSCULOSKELETAL/EXTREMETIES Musculoskeletal/Extremeties: MAEW, FROM, Edema - 2+ edema to bilateral lower extremities - NEURO Level of Consciousness: Awake, Alert, Appropriate Motor/Sensory: No Motor Deficit, No Sensory Deficit - DERM Integumentary: Warm, Dry, No Rash Course - Re-evaluation Re-evalutation: 07/13/19 14:25 Patient with bilateral 2+ peripheral edema. Patient does report working long hours and when she is standing on her feet. No dyspnea, no chest pain symptoms. No concern for CHF. Patient with normal renal function studies at this time. Patient without any other acute findings. Patient educated on use of support stockings as well as decreasing sodium in her diet. Will give a dose of Lasix here and have patient follow-up with primary doctor for recheck. Patient is also wanting number for ophthalmology for outpatient follow-up as well. Patient with bilateral lower extremity edema, no concern for DVT at this time. 07/13/19 14:26 - Vital Signs Vital signs: Temp Pulse Resp BP Pulse Ox 98.3 F 68 18 105/64 100 07/13/19 11:19 07/13/19 11:19 07/13/19 11:19 07/13/19 11:19 07/13/19 11:19 - Laboratory Result Diagrams: 07/13/19 12:14 07/13/19 12:14 Laboratory results interpreted by me: 07/13/19 07/13/19 07/13/19 12:14 12:14 12:14 Hgb 11.1 L Hct 33.7 L MCH 26.6 L Sodium 135.9 L Glucose 143 H AST 37 H NT-Pro-B Natriuret Pep 279 H Albumin 3.3 L Urine Ketones Urine Blood Ur Leukocyte Esterase 07/13/19 12:14 Hgb Hct MCH Sodium Glucose AST NT-Pro-B Natriuret Pep Albumin Urine Ketones TRACE H Urine Blood LARGE H Ur Leukocyte Esterase SMALL H 07/13/19 14:25 Labs- Entire Visit 07/13/19 07/13/19 07/13/19 12:14 12:14 12:14 WBC 4.6 RBC 4.17 Hgb 11.1 L Hct 33.7 L MCV 81 MCH 26.6 L MCHC 32.9 RDW 13.7 Plt Count 216 Lymph % (Auto) 40.2 Sac % (Auto) 9.6 Eos % (Auto) 1.6 Baso % (Auto) 0.7 Absolute Neuts (auto) 2.2 Absolute Lymphs (auto) 1.9 Absolute Monos (auto) 0.4 Absolute Eos (auto) 0.1 Absolute Basos (auto) 0.0 Seg Neutrophils % 47.9 Sodium 135.9 L Potassium 3.9 Chloride 102 Carbon Dioxide 27 Anion Gap 7 BUN 10 Creatinine 0.55 Est GFR ( Amer) > 60 Est GFR (MDRD) Non-Af > 60 Glucose 143 H Calcium 9.3 Total Bilirubin 0.3 Direct Bilirubin 0.3 Neonat Total Bilirubin Not Reportable Neonat Direct Bilirubin Not Reportable Neonat Indirect Bili Not Reportable AST 37 H ALT 24 Alkaline Phosphatase 48 Creatine Kinase 64 NT-Pro-B Natriuret Pep 279 H Total Protein 6.3 Albumin 3.3 L Urine Color Urine Appearance Urine pH Ur Specific [place] Urine Protein Urine Glucose (UA) Urine Ketones Urine Blood Urine Nitrite Urine Bilirubin Urine Urobilinogen Ur Leukocyte Esterase Urine WBC (Auto) Urine RBC (Auto) Urine Bacteria (Auto) Squamous Epi Cells Auto Urine Mucus (Auto) Urine Ascorbic Acid 07/13/19 12:14 WBC RBC Hgb Hct MCV MCH MCHC RDW Plt Count Lymph % (Auto) Sac % (Auto) Eos % (Auto) Baso % (Auto) Absolute Neuts (auto) Absolute Lymphs (auto) Absolute Monos (auto) Absolute Eos (auto) Absolute Basos (auto) Seg Neutrophils % Sodium Potassium Chloride Carbon Dioxide Anion Gap BUN Creatinine Est GFR ( Amer) Est GFR (MDRD) Non-Af Glucose Calcium Total Bilirubin Direct Bilirubin Neonat Total Bilirubin Neonat Direct Bilirubin Neonat Indirect Bili AST ALT Alkaline Phosphatase Creatine Kinase NT-Pro-B Natriuret Pep Total Protein Albumin Urine Color YELLOW Urine Appearance SLIGHTLY-CLOUDY Urine pH 5.0 Ur Specific [place] 1.014 Urine Protein NEGATIVE Urine Glucose (UA) NEGATIVE Urine Ketones TRACE H Urine Blood LARGE H Urine Nitrite NEGATIVE Urine Bilirubin NEGATIVE Urine Urobilinogen NEGATIVE Ur Leukocyte Esterase SMALL H Urine WBC (Auto) 3 Urine RBC (Auto) 2 Urine Bacteria (Auto) TRACE Squamous Epi Cells Auto 1 Urine Mucus (Auto) RARE Urine Ascorbic Acid NEGATIVE Discharge - Discharge Clinical Impression: Peripheral edema UTI (urinary tract infection) Qualifiers: Urinary tract infection type: site unspecified Hematuria presence: with hematuria Qualified Code(s): N39.0 - Urinary tract infection, site not specified Condition: Stable Disposition: HOME, SELF-CARE Instructions: Cephalexin ([facility]), Edema, Peripheral ([facility]), Urinary Tract Infection ([facility]) Additional Instructions: Return immediately for any new or worsening symptoms Followup with your primary care provider, call tomorrow to make a followup appointment Wear support stockings to help with swelling, elevate legs when you are not up working to help with swelling Decrease sodium in the diet Prescriptions: Cephalexin Monohydrate [Keflex 500 mg Capsule] 500 mg PO BID 5 Days capsule Forms: Return to Work Referrals: [facility] [Provider Group] - Follow up as needed [facility] [Provider Group] - Follow up as needed [facility] [Provider Group] - Follow up as needed
[2019-07-13 14:57] VITALS: BP 100/63
== END 2019-07-13 14:57 | disposition home or self-care (01) ==
LOC: ER 10:31
DX: N39.0 Urinary tract infection, site not specified (principal); R60.0 Localized edema; J45.909 Unspecified asthma, uncomplicated; E10.9 Type 1 diabetes mellitus without complications
CPT/HCPCS: 36415; 80053; 81001; 82550; 83880; 85025; 87086; 99283